=== PATIENT | female | born 1980 ===

== ENCOUNTER 2016-10-16 13:37 | Emergency (ER) | payer MEDICAID ==
[2016-10-16 13:38] VITALS: BMI 24.8
[2016-10-16 13:51] VITALS: TEMP 97.8
--- NOTE | 2016-10-16 13:55 | ED PDOC ---
Arrival/HPI - General Chief Complaint: Shortness Of Breath Time Seen by Provider: 10/16/16 13:47 Historian: Patient - History of Present Illness Narrative History of Present Illness (Text): 10/16/16 13:51 A 36 year old female, whose past medical history includes asthma, presents to the emergency department complaining of asthma exacerbation. Patient reports shortness of breath, wheezing and cough for the past few days. As per triage, patient ran out of her inhaler medication. Patient denies any fever, nausea, vomiting, diarrhea, abdominal pain, chest pain or any other complaints. PMD: None Time/Duration: Other (few days) Symptom Course: Unchanged Quality: Other Context: Other Past Medical History - Provider Review Nursing Documentation Reviewed: Yes - Infectious Disease Hx of Infectious Diseases: None - Tetanus Immunization Tetanus Immunization: Unknown - Reproductive Menopause: No - Pulmonary Hx Asthma: Yes - Neurological Hx Seizures: Yes - Endocrine/Metabolic Hx Endocrine Disorders: No - Psychiatric Hx Substance Use: No - Surgical History Hx Tubal Ligation: Yes - Anesthesia Hx Anesthesia Reactions: No Hx Malignant Hyperthermia: No - Suicidal Assessment Feels Threatened In Home Enviroment: No Family/Social History - Physician Review Nursing Documentation Reviewed: Yes Family/Social History: No Known Family HX Smoking Status: Never Smoked Hx Alcohol Use: No Hx Substance Use: No Hx Substance Use Treatment: No Allergies/Home Meds Allergies/Adverse Reactions: Allergies No Known Allergies Allergy (Verified 10/25/14 17:09) Home Medications: Home Meds Medication Instructions Recorded Confirmed carBAMazepine [TEGretol] 200 mg PO DAILY 10/25/14 10/25/14 Review of Systems - Physician Review All systems were reviewed & negative as marked: Yes - Review of Systems Constitutional: absent: Fevers Respiratory: SOB, Cough, Wheezing Cardiovascular: absent: Chest Pain Gastrointestinal: absent: Abdominal Pain, Diarrhea, Nausea, Vomiting Physical Exam Vital Signs Reviewed: Yes Vital Signs Temp Pulse Resp BP Pulse Ox 10/16/16 15:38 95 H 20 140/72 98 10/16/16 13:45 117 H 24 172/117 H 97 10/16/16 13:38 97.8 F 24 97 Temperature: Afebrile Blood Pressure: Hypertensive Pulse: Tachycardic Respiratory Rate: Normal Appearance: Positive for: Well-Appearing, Non-Toxic, Comfortable Pain Distress: None Mental Status: Positive for: Alert and Oriented X 3 - Systems Exam Head: Present: Atraumatic, Normocephalic Pupils: Present: PERRL Extroacular Muscles: Present: EOMI Conjunctiva: Present: Normal Mouth: Present: Moist Mucous Membranes Neck: Present: Normal Range of Motion Respiratory/Chest: Present: Good Air Exchange, Wheezes (Diffuse wheezing). No: Respiratory Distress, Accessory Muscle Use Cardiovascular: Present: Regular Rate and Rhythm, Normal S1, S2. No: Murmurs Abdomen: Present: Normal Bowel Sounds. No: Tenderness, Distention, Peritoneal Signs Back: Present: Normal Inspection Upper Extremity: Present: Normal Inspection. No: Cyanosis, Edema Lower Extremity: Present: Normal Inspection. No: Edema Neurological: Present: GCS=15, CN II-XII Intact, Speech Normal Skin: Present: Warm, Dry, Normal Color. No: Rashes Psychiatric: Present: Alert, Oriented x 3, Normal Insight, Normal Concentration Medical Decision Making ED Course and Treatment: 10/16/16 13:51 Impression: A 36 year old female with asthma exacerbation. Patient notes shortness of breath , wheezing and cough. Plan: -- Chest xray -- Labs -- Urinalysis -- Duoneb and Solumedrol -- Reassess and disposition Progress Notes: 10/16/16 14:59 pt reassesedl wheezing improved. minimal wheezing at this time. pt speaking full sentences. in nad 10/16/16 15:30 pt reassesed: wheezing resolved. pt states feels well for d/c. advse outpt f/u and return precautions - Lab Interpretations Lab Results: 10/16/16 14:05 10/16/16 14:05 Lab Results 10/16/16 14:05: WBC 9.6, RBC 3.98, Hgb 12.3, Hct 36.3, MCV 91.2, MCH 30.9, MCHC 33.9, RDW 12.2, Plt Count 394, MPV 8.7, Gran % 70.0 H, Lymph % (Auto) 20.1 L, [place] % (Auto) 4.1, Eos % (Auto) 5.6 H, Baso % (Auto) 0.2, Gran # 6.69 H, Lymph # 1.9, [place] # 0.4, Eos # 0.5, Baso # 0.02, Sodium 140, Potassium 3.7, Chloride 100, Carbon Dioxide 28, Anion Gap 16, BUN 9, Creatinine 0.6, Est GFR ( Amer) > 60, Est GFR (Non-Af Amer) > 60, Random Glucose 103, Calcium 8.9, Total Bilirubin 0.4, AST 33, ALT 28, Alkaline Phosphatase 106, Total Protein 8.2, Albumin 4.2, Globulin 4.0, Albumin/Globulin Ratio 1.1 I have reviewed the lab results: Yes - RAD Interpretation Radiology Orders: 10/16/16 13:51 CHEST PORTABLE [RAD] Stat - Medication Orders Current Medication Orders: Discontinued Medications Albuterol/Ipratropium (Duoneb 3 Mg/0.5 Mg (3 Ml) Ud) 3 ml IH Q15M BEENA Stop: 10/16/16 14:31 Last Admin: 10/16/16 15:06 Dose: 3 ML Methylprednisolone (Solu-Medrol) 125 mg IVP STAT STA Stop: 10/16/16 13:52 Last Admin: 10/16/16 14:10 Dose: 125 MG IVP Administration Document 10/16/16 14:10 JOL (Rec: 10/16/16 14:10 [id number]) Charges for Administration # of IVP Administrations 1 - Scribe Statement The provider has reviewed the documentation as recorded by the Sarah Godinez Provider Scribe Attestation: All medical record entries made by the Scribe were at my direction and personally dictated by me. I have reviewed the chart and agree that the record accurately reflects my personal performance of the history, physical exam, medical decision making, and the department course for this patient. I have also personally directed, reviewed, and agree with the discharge instructions and disposition. Disposition/Present on Arrival - Present on Arrival Any Indicators Present on Arrival: No History of DVT/PE: No History of Uncontrolled Diabetes: No Urinary Catheter: No History of Decub. Ulcer: No History Surgical Site Infection Following: None - Disposition Have Diagnosis and Disposition been Completed?: Yes Diagnosis: Asthma Disposition: HOME/ ROUTINE Disposition Time: 14:59 Condition: GOOD Discharge Instructions (ExitCare): Asthma (ED), How to Use a Nebulizer (ED) Additional Instructions: please follow up with your doctor. return to er with worsening symptoms or concerns. Prescriptions: Nebulizer [Aeroeclipse] 1 each MC Q6 PRN #1 each PRN Reason: Wheezing Nebulizer Accessories [Aeroneb Go] 1 each MC Q6 PRN #1 each PRN Reason: Wheezing Albuterol 0.083% [Albuterol 0.083% Inhal Sulema (2.5 mg/3 ml) UD] 2.5 mg IH Q6 PRN #1 neb PRN Reason: Wheezing Prednisone 50 mg PO DAILY #5 tablet Referrals: Aranza Harrison Reradha, [Primary Care Provider] - Follow up with primary
[2016-10-16] MEDS: Albuterol-Ipratrop 3 mg / 0.5 (3 ml) UD IH SCH ×3 (14:10→15:06)
[2016-10-16 14:14] LABS: ADD MANUAL DIFF? NO
[2016-10-16 14:24] LABS: BASO # 0.02 K/mm3 (0.0-2.0); BASO % 0.2 % (0.0-3.0); EOS # 0.5 (0.0-0.7); EOS % 5.6 % (1.5-5.0); GRAN # 6.69 (1.4-6.5); HEMATOCRIT 36.3 % (36.0-48.0); LYMPH # 1.9 (1.2-3.4); LYMPH % 20.1 % (22.0-35.0); MEAN CELL VOLUME 91.2 fL (80.0-105.0); MEAN CORPUSCULAR HEMOGLOBIN 30.9 pg (25.0-35.0); MEAN CORPUSCULAR HGB CONC 33.9 g/dl (31.0-37.0); MEAN PLATELET VOLUME 8.7 fl (7.0-11.0); MONO # 0.4 (0.1-0.6); MONO % 4.1 % (1.0-6.0); PLATELET COUNT 394 10^3/uL (120.0-450.0); RED CELL DISTRIBUTION WIDTH 12.2 % (11.5-14.5); WHITE BLOOD COUNT 9.6 10^3/ul (4.5-11.0)
[2016-10-16 14:39] LABS: ALB/GLOB RATIO 1.1 (1.1-1.8); ALKALINE PHOSPHATASE 106 U/L (38-133); ALT/SGPT 28 U/L (7-56); AST/SGOT 33 U/L (15-39); BILIRUBIN,TOTAL 0.4 mg/dL (0.2-1.3); BLOOD UREA NITROGEN 9 mg/dL (7-21); CALCIUM 8.9 mg/dL (8.4-10.5); CARBON DIOXIDE 28 mmol/L (21-33); CHLORIDE 100 mmol/L (98-107); GFR AFRICAN-AMERICAN > 60; GLUCOSE,RANDOM 103 mg/dL (70-110); POTASSIUM 3.7 mmol/L (3.6-5.0); SODIUM 140 mmol/L (132-148); TOTAL PROTEIN 8.2 g/dL (5.8-8.3)
--- NOTE | 2016-10-16 14:50 | RAD ---
HISTORY: cough COMPARISON: None available. TECHNIQUE: Chest, one view. FINDINGS: Examination limited by habitus. LUNGS: No focal consolidation. Please note that chest x-ray has limited sensitivity for the detection of pulmonary masses. PLEURA: No significant pleural effusion identified. No definite pneumothorax . CARDIOVASCULAR: The cardiomediastinal silhouette appears within normal limits of size. OSSEOUS STRUCTURES: No acute osseous abnormality identified. VISUALIZED UPPER ABDOMEN: Unremarkable. OTHER FINDINGS: None. IMPRESSION: No focal consolidation, significant pleural effusion, or definite pneumothorax identified.
[2016-10-16 15:44] VITALS: BP 140/72; PULSE 95; RESP 20; O2SAT 98
== END 2016-10-16 15:46 | disposition home or self-care (01) ==
LOC: ED 13:37
DX: J45.909 Unspecified asthma, uncomplicated (principal)
CPT/HCPCS: 71010; 80053; 85025; 96374; 99284; J2930